=== PATIENT | female | born 1990 | race Caucasian/White ===

== ENCOUNTER 2016-10-19 14:54 | Emergency (ER) ==
[2016-10-19 15:04] VITALS: BP 138/85
--- NOTE | 2016-10-19 15:42 | PROVIDER DOCUMENTATION ---
HPI-General Adult - General Source: patient - History of Present Illness -Gen Adult Nature of Presenting Problems: 26 YOWF PRESENTS TO ED WITH C/O PT STATES SHE HAS A TOOTH ACHE X 2 DAYS. PT STATES RT LOWER MOLAR PAIN. PT STATES SHE THINKS SHE HAS A TOOTH COMING IN. Location of Pain/Injury: reports: mouth (RT LOWER MOLAR PAIN) Pain Radiation: reports: no radiation Quality of Pain: reports: aching Severity: reports: moderate Onset/Duration: reports: 2 days ago Timing: reports: still present Context/Activities at Onset: reports: light activity Modifying Factors: improves with: nothing Similar Symptoms Previously?: No Recently seen or treated by another doctor?: No <Fermin Diaz - Last Filed: 10/19/16 15:37> <Nathen Chaidez - Last Filed: 10/19/16 15:49> - General Chief Complaint: Toothache Stated Complaint: TOOTHACHE Time Seen by Provider: 10/19/16 15:30 Allergies/Adverse Reactions: Patient Allergies Allergy/AdvReac Type Severity Reaction Status Date / Time No Known Allergies Allergy Verified 05/31/12 12:45 Home Medications: Home Medication List Medication Instructions Recorded Confirmed Last Taken Type Tramadol [Ultram] 50 mg PO Q6H PRN PRN #12 tablet 10/19/16 Unknown Rx Review of Systems - Adult - REVIEW OF SYSTEMS - ADULT Constitutional: denies: chills, fever Eyes: reports: no symptoms reported Ears, Nose, Mouth & Throat: reports: mouth/dental pain Cardiovascular: denies: chest pain, palpitations, syncope Respiratory: denies: cough, shortness of breath, wheezing Gastrointestinal: denies: abdominal pain, diarrhea, nausea, vomiting Genitourinary: reports: no symptoms reported Musculoskeletal: denies: back pain, neck pain Integumentary: reports: no symptoms reported Neurological: denies: dizziness/vertigo, headache/migraines, syncope Psychiatric: reports: no symptoms reported Endocrine: reports: no symptoms reported Hematologic/Lymphatic: reports: no symptoms reported Allergic/Immunologic: reports: no symptoms reported All Other Systems: Reviewed and Negative <Fermin Diaz - Last Filed: 10/19/16 15:37> Past History - Adult - PAST MEDICAL HISTORY-ADULT Review of Records: reports: Nursing Assessment Review, Medications Reviewed - IMMUNIZATION STATUS Childhood Immunizations: See Nurse Assessment Flu Vaccine: See Nurse Assessment - SOCIAL HISTORY Smoking: cigarettes, greater than 1 pack/day Provider spent 3-5 mins advising pt. on dangers of tobacco.: Discussed manners to quit use, and f/u contacts for add'l counseling. Substance Use: denies Alcohol Use Frequency: never Living Situation: family <Fermin Diaz - Last Filed: 10/19/16 15:37> Physical Exam-General - CONSTITUTIONAL General Appearance: alert - HEAD, EARS, NOSE, MOUTH & THROAT HENMT: normocephalic/atraumatic, moist mucous membranes, other (RT LOWER MOLAR. # 32 PARTIAL ERUPTION.) - NECK Neck: tender lateral (RT SIDE) - RESPIRATORY Respiratory: chest non-tender, lungs clear, normal breath sounds - CARDIOVASCULAR Cardiovascular: normal peripheral pulses, tachycardia - GASTROINTESTINAL (ABDOMEN) Abdominal Exam: normal bowel sounds, non tender, soft - LYMPHATIC Lymphatic: no adenopathy - MUSCULOSKELETAL Back Exam: normal inspection, no CVA tenderness, no vertebral tenderness Extremity: normal range of motion, non-tender - SKIN Integumentary: normal color, normal turgor, warm/dry - NEUROLOGIC Neurologic: grossly normal - PSYCHIATRIC Psych/Mental Status: oriented x 3 <Fermin Diaz - Last Filed: 10/19/16 15:37> Departure <Fermin Diaz - Last Filed: 10/19/16 15:37> - Departure Time of Disposition Order: 15:46 Certified Medical Emergency: Emergent <Nathen Chaidez - Last Filed: 10/19/16 15:49> - Departure DIAGNOSIS: Tooth eruption Disposition: HOME 01 Condition: Good Additional Instructions: ED Follow Up Instructions: You have been treated by a care provider in the Emergency Department. These instructions are being provided to you so you can have an understanding of how to care for yourself upon discharge. Upon discharge from the Emergency Department, you are responsible for making arrangements for follow-up care by a physician of your choice. Take all prescribed medications as directed. Return to the Emergency Department immediately for any new or worsening symptoms. You may call the Physician Referral phone number at [phone] to obtain a list of Physicians who are taking new patients. Use Oragel on gum around tooth Prescriptions: Tramadol [Ultram] 50 mg PO Q6H PRN PRN #12 tablet PRN Reason: Pain Instructions: Dental Pain Attestation - Scribe Verification/Attestation Scribe:: Fermin Diaz Acting as Scribe for:: Nathen Chaidez Scribe documention review:: This chart was documented by a scribe and accurately reflects the service the provider performed and the decisions made by the provider. <Fermin Diaz - Last Filed: 10/19/16 15:37> Physician Attestation - Physician Attestation I, the provider, attest to the following statement:: Nathen Chaidez Physician documentation Attestation:: This documentation recorded by the scribe accurately reflects the service I personally performed and the decisions made by me. <Nathen Chaidez - Last Filed: 10/19/16 15:49>
== END 2016-10-19 16:06 | disposition home or self-care (01) ==
LOC: P.ED 14:54
DX: K00.6 Disturbances in tooth eruption (principal); K08.89 Other specified disorders of teeth and supporting structures; R00.0 Tachycardia, unspecified; F17.210 Nicotine dependence, cigarettes, uncomplicated; Z71.6 Tobacco abuse counseling